=== PATIENT | female | born 1945 | race Caucasian/White ===

== ENCOUNTER 2018-02-16 06:40 | Day surgery (SDC) | payer MEDICARE ==
[~2018-02-16] VITALS: Ht 167.6 cm; Wt 70.3 kg
[~2018-02-16 06:40] MED LIST: APPLE CIDER VI500 MG PO; AYGESTIN5 MG PO; CALCIUM PO; CALCIUM600 M2 PO; D3400 UNI1 PO; EVISTA60 MG PO; FISH OIL1 CAP PO; FISH OIL1000 MG PO; GLUCOSAMINE1500 MG PO; LEVOTHYROXIN75 MC1 PO; MIRALAX3350 NF PO; MULTI FOR HER PO; NASONEX50 MCG/AC NAB; NORETHIN ACE5 MG PO; VITAMIN D2 PO; VITAMIN D3400 UNI2; WOMEN'S ONE PO; [UNRECOGNIZED DRUG - OTHER] PO; [UNRECOGNIZED DRUG - OTHER] PO
[2018-02-16 09:06] VITALS: BP 112/68
== END 2018-02-16 09:15 | disposition home or self-care (01) ==
LOC: ENDO 06:40
PROVIDERS: ATTEND Surgery
PROC: 0DJD8ZZ Inspection of Lower Intestinal Tract, Via Natural or Artificial Opening Endoscopic (ICD-10-PCS; principal; 2018-02-16)
DX: Z12.11 Encounter for screening for malignant neoplasm of colon (principal); K57.30 Diverticulosis of large intestine without perforation or abscess without bleeding; E03.9 Hypothyroidism, unspecified; E83.52 Hypercalcemia; Z85.038 Personal history of other malignant neoplasm of large intestine; Z90.49 Acquired absence of other specified parts of digestive tract

== ENCOUNTER → 2018-10-13 | Outpatient (REF) | payer MEDICARE | END | disposition home or self-care (01) | LOC: MAMMO 10:30 | PROVIDERS: ATTEND Nurse Practitioner Family | DX: Z12.31 Encounter for screening mammogram for malignant neoplasm of breast (principal) ==

== ENCOUNTER 2019-03-28 09:11 | Emergency (ER) | payer MEDICARE ==
[~2019-03-28] VITALS: Ht 167.6 cm; Wt 63.6 kg
[~2019-03-28 09:11] MED LIST changes: -FISH OIL1000 MG PO; +FISH OIL600 MG PO
[2019-03-28 10:03] LABS: HEMATOCRIT 39.5 % (37.0-47.0); HEMOGLOBIN 12.8 g/dl (12.0-16.0); IMMATURE GRANULOCYTES 0.6 % (0.0-5.0); MEAN CELL VOLUME 90.2 fL CALC (80.0-100.0); MEAN CORPUSCULAR HGB 29.2 pG CALC (26.0-32.0); MEAN CORPUSCULAR HGB CONC 32.4 g/L CALC (32.0-36.0); NEUT# 9.38 thou/uL (2.00-7.15); RED BLOOD COUNT 4.38 mill/uL (4.20-5.60); RED CELL DISTRI WIDTH 12.9 % (11.5-15.5)
[2019-03-28 10:08] LABS: URINE BILIRUBIN - DIPSTICK NEGATIVE (NEGATIVE); URINE BLOOD DIPSTICK TRACE-INTACT (NEGATIVE); URINE COLOR YELLOW; URINE GLUCOSE - DIPSTICK NEGATIVE (NEGATIVE); URINE KETONE NEGATIVE (NEGATIVE); URINE LEUK ESTERASE NEGATIVE (NEGATIVE); URINE NITRITE - DIPSTICK NEGATIVE (Negative); URINE PROTEIN - DIPSTICK NEGATIVE (NEG-TRACE); URINE UROBILINOGEN - DIPSTICK 0.2 E.U./dL (0.2)
[2019-03-28 10:12] LABS: ALBUMIN 4.3 g/dL (3.2-5.0); ALKALINE PHOSPHATASE 76 u/l (38-126); ANION GAP 9 (6-22 (CALC)); BILIRUBIN, TOTAL 0.4 mg/dL (0.0-1.4); BUN 17 mg/dL (8-23); BUN/CREATININE RATIO 23 (12-20 (CALC)); CARBON DIOXIDE 29 mmol/l (22-30); CHLORIDE 104 mmol/l (95-108); CREATININE 0.8 mg/dL (0.5-1.0); GFR > 60 ML/MIN (>=60 (CALC)); GFR FOR AFR.AMER. > 60 ML/MIN (>=60 (CALC)); LIPASE 158 u/l (23-300); SGOT/AST 23 u/l (9-36); SODIUM 139 mmol/l (137-146); TOTAL PROTEIN 7.3 g/dL (6.3-8.2)
[2019-03-28 11:08] VITALS: BP 183/96
== END 2019-03-28 11:12 | disposition home or self-care (01) ==
LOC: ED 09:11
PROVIDERS: Family Medicine
DX: K56.41 Fecal impaction (principal); R10.32 Left lower quadrant pain; R10.12 Left upper quadrant pain
CPT/HCPCS: Q9967

== ENCOUNTER 2021-05-15 07:35 | Day surgery (SDC) | payer MEDICARE ==
[~2021-05-15] VITALS: Ht 167.6 cm; Wt 71.7 kg
[~2021-05-15 07:35] MED LIST changes: +E400400 UNIT PO; +FOLIC ACID PO; +MAGNESIUM400 M1 PO; +PROBIOTIC COLON PO; +VENLAFAXINE150 M1 PO; -VITAMIN D2 PO; +VITAMIN D3400 UNIT PO; -[UNRECOGNIZED DRUG - OTHER] PO
[2021-05-15 09:39] VITALS: BP 145/81
== END 2021-05-15 10:10 | disposition home or self-care (01) ==
LOC: ENDO 07:35 → ORM 09:30 → ENDO 10:10
PROVIDERS: ATTEND Surgery
PROC: 0DJD8ZZ Inspection of Lower Intestinal Tract, Via Natural or Artificial Opening Endoscopic (ICD-10-PCS; principal; 2021-05-15)
DX: K59.00 Constipation, unspecified (principal); Z85.038 Personal history of other malignant neoplasm of large intestine; Z90.49 Acquired absence of other specified parts of digestive tract

== ENCOUNTER 2021-06-09 18:42 | Emergency (ER) | payer MEDICARE ==
[~2021-06-09] VITALS: Ht 170.2 cm; Wt 82.0 kg
[2021-06-09] MEDS ORDERED: VITAMIN D2 PO (19:26)
[2021-06-09] MEDS ORDERED: FISH OIL1200 M1 PO (19:27)
[2021-06-09] MEDS ORDERED: APPLE CIDER VI600 MG PO (19:28)
[2021-06-09] MEDS ORDERED: FOLIC ACID800 MCG PO (19:30)
[2021-06-09 20:15] VITALS: BP 160/94
== END 2021-06-09 20:15 | disposition home or self-care (01) ==
LOC: ED 18:42
PROC: 2W3DX1Z Immobilization of Left Lower Arm using Splint (ICD-10-PCS; principal; 2021-06-09)
DX: S52.502A Unspecified fracture of the lower end of left radius, initial encounter for closed fracture (principal); W01.0XXA Fall on same level from slipping, tripping and stumbling without subsequent striking against object, initial encounter; Y93.H2 Activity, gardening and landscaping; Y92.007 Garden or yard of unspecified non-institutional (private) residence as the place of occurrence of the external cause

== ENCOUNTER 2021-11-21 14:07 | Emergency (ER) | payer MEDICARE ==
[2021-11-21] VITALS (13 sets, daily range): BP systolic 126–149; BP diastolic 76–87
[~2021-11-21] VITALS: Ht 170.2 cm; Wt 54.4 kg
[~2021-11-21 14:07] MED LIST changes: +APPLE CIDER VI600 MG PO; +FISH OIL1200 M1 PO; +FOLIC ACID800 MCG PO; +VITAMIN D2 PO
[2021-11-21] MEDS ORDERED: KEFLEX500 MG PO (14:50)
== END 2021-11-21 17:19 | disposition home or self-care (01) ==
LOC: ED 14:07
DX: S91.332A Puncture wound without foreign body, left foot, initial encounter (principal); W45.0XXA Nail entering through skin, initial encounter; Y92.007 Garden or yard of unspecified non-institutional (private) residence as the place of occurrence of the external cause

== ENCOUNTER 2024-10-02 08:08 | Day surgery (SDC) | payer MEDICARE ==
[~2024-10-02] VITALS: Ht 167.6 cm; Wt 72.6 kg
[~2024-10-02 08:08] MED LIST changes: +B125000 MCG PO; +BENAZEPRIL20 M1 PO; +D350 MCG PO; +KEFLEX500 MG PO
[2024-10-02 10:33] VITALS: BP 151/76
[2024-10-02] MEDS ORDERED: LIDOCAINE HCL 2% 2ML SDV IV ONE (12:49)
[2024-10-02] MEDS ORDERED: GLYCOPYRROLATE 0.2 MG/ML IV ONE (12:49)
[2024-10-02] MEDS ORDERED: PROPOFOL 200 MG/20 ML VIAL IV ONE (12:49)
== END 2024-10-02 10:46 | disposition home or self-care (01) ==
LOC: ORM 08:08
PROVIDERS: ATTEND Surgery
PROC: 0DJD8ZZ Inspection of Lower Intestinal Tract, Via Natural or Artificial Opening Endoscopic (ICD-10-PCS; principal; 2024-10-02)
DX: K59.00 Constipation, unspecified (principal); K64.8 Other hemorrhoids; E03.9 Hypothyroidism, unspecified; F41.9 Anxiety disorder, unspecified; Z85.038 Personal history of other malignant neoplasm of large intestine; Z80.0 Family history of malignant neoplasm of digestive organs; Z90.49 Acquired absence of other specified parts of digestive tract
CPT/HCPCS: J1596